=== PATIENT | female | born 1975 | race Two or more races ===

== ENCOUNTER 2020-03-08 10:45 | Outpatient (CLI) | payer OTHER | END 2020-03-08 11:43 | disposition home or self-care (01) | LOC: OFIC 805 10:45 | PROVIDERS: ATTEND Otolaryngology Otology & Neurotology | DX: J38.2 Nodules of vocal cords (principal); R49.0 Dysphonia; D34 Benign neoplasm of thyroid gland; K21.9 Gastro-esophageal reflux disease without esophagitis ==

== ENCOUNTER 2020-07-17 08:53 | Day surgery (SDC) | payer OTHER ==
[~2020-07-17 08:53] MED LIST: CLONAZEP PO; ZOLO PO
== END 2020-07-17 17:45 | disposition home or self-care (01) ==
LOC: CIR.AMB 08:53 → AMB-ENDOS 10:15 → CIR.AMB 10:15
PROVIDERS: ATTEND Colon & Rectal Surgery
DX: K64.4 Residual hemorrhoidal skin tags (principal); K64.8 Other hemorrhoids; Z20.822 Contact with and (suspected) exposure to COVID-19